=== PATIENT | male | born 1975 | race African-American/Black ===

== ENCOUNTER 2018-06-06 11:12 | Emergency (ER) | payer OTHER ==
[~2018-06-06] VITALS: Ht 185.4 cm; Wt 98.4 kg
[2018-06-06 13:33] VITALS: BP 140/88
[2018-06-06 13:51] LABS: Urine Bacteria FEW /hpf (None Seen); Urine Blood 1+ /uL (Negative); Urine Mucus FEW (None Seen); Urine Specific Gravity 1.022 (1.001-1.035); Urine WBC 139 /hpf (0 - 3)
[2018-06-06 14:16] LABS: Alcohol, Urine < 3.0 mg/dL (0-5); Amphetamine Screen, Urine NEGATIVE (NEGATIVE); Barbiturate Scree,Urine NEGATIVE (NEGATIVE); Benzodiazephine Screen, Urine NEGATIVE (NEGATIVE); Cannabinoid Screen, Urine POSITIVE (NEGATIVE); Cocaine Screen, Urine NEGATIVE (NEGATIVE); Opiate Scree,Urine NEGATIVE (NEGATIVE); Phencyclidine Screen, Urine NEGATIVE (NEGATIVE)
[2018-06-06] MEDS ORDERED: AZITHROMYCIN 250 MG TAB PO ONE (15:00)
[2018-06-06] MEDS ORDERED: cefTRIAXone SODIUM 250 MG VL IM ONE (15:00)
== END 2018-06-06 15:02 | disposition home or self-care (01) ==
LOC: ER 11:15
DX: N39.0 Urinary tract infection, site not specified (principal); I10 Essential (primary) hypertension; F17.210 Nicotine dependence, cigarettes, uncomplicated
CPT/HCPCS: 80307; 81001; 96372; 99284; J0696

== ENCOUNTER 2019-04-08 23:51 | Emergency (ER) | payer OTHER ==
[~2019-04-08] VITALS: Ht 185.4 cm; Wt 102.1 kg
[2019-04-09 04:42] VITALS: BP 149/89
[2019-04-09] MEDS ORDERED: BACITRACIN TOP OINT 1 UD PKG TOP ONE (06:00)
== END 2019-04-09 06:07 | disposition home or self-care (01) ==
LOC: ER 23:54
DX: L03.011 Cellulitis of right finger (principal); I10 Essential (primary) hypertension; F17.210 Nicotine dependence, cigarettes, uncomplicated
CPT/HCPCS: 10060